=== PATIENT | male | born 1935 | race Caucasian/White ===

== ENCOUNTER 2025-07-19 08:21 | Day surgery (SDC) | payer MEDICARE ==
[~2025-07-19] VITALS: Ht 185.4 cm; Wt 84.9 kg
[~2025-07-19 08:21] MED LIST: C 50TAB PO; MAGNESIUM THREONATE PO; TRAM50TA2 PO; VITA400C67 PO
[2025-07-19] MEDS: LR 1,000 ML IV SCH (09:00)
[2025-07-19] MEDS ORDERED: ONDANSETRON 4MG 2ML VIAL As Ordered ONE (09:33)
[2025-07-19] MEDS ORDERED: MIDAZOLAM INJ 2 MG/2 ML VIAL As Ordered ONE (09:33)
[2025-07-19] MEDS ORDERED: LIDOCAINE 2% 100 MG/5 ML SDV (FOR ANES.) As Ordered ONE (09:33)
[2025-07-19] MEDS ORDERED: dexAMETHasone 4 MG/ML 1 ML VIAL As Ordered ONE (09:33)
[2025-07-19] MEDS ORDERED: LIDOCAINE 5% OINT 30 GM TUBE As Ordered ONE (11:03)
[2025-07-19] MEDS: ceFAZolin SOD 2 GM IV ONCE IV ONE (11:18)
[2025-07-19] MEDS ORDERED: ACETAMINOPHEN 1000MG/100ML IV BAG As Ordered ONE (11:33)
[2025-07-19] MEDS ORDERED: SEVOFLURANE INHAL SOLN 250 ML BTL As Ordered ONE (11:33)
[2025-07-19] MEDS ORDERED: CALCIUM CHLORIDE 10% 1 GM/10 ML SYR As Ordered ONE (12:20)
[2025-07-19] MEDS: ISOVUE-300 61% 100 ML VIAL As Ordered ONE (12:53)
[2025-07-19] MEDS ORDERED: HYDROMORPHONE HCL 0.5 MG/0.5 ML SYRINGE IV PRN (13:20)
[2025-07-19] MEDS ORDERED: LR 1,000 ML IV SCH (13:20)
[2025-07-19] MEDS ORDERED: TAMS-18 PO (13:44)
[2025-07-19] MEDS: ONDANSETRON 4MG 2ML VIAL IV PRN (14:06)
[2025-07-19] MEDS ORDERED: POLYVINYL ALCOHOL OPHTH SOLN 15ML (LIQUITEARS) OS PRN (14:35)
[2025-07-19] MEDS ORDERED: KETOROLAC 30 MG/ML 1 ML VIAL IV ONE (15:20)
[2025-07-19 16:30] VITALS: BP 148/80; TEMP 97.4; O2SAT 98
[2025-07-19] MEDS ORDERED: GENTAMICIN 0.3% OPHTH SOL 5 ML BTL OS SCH (17:00)
== END 2025-07-19 18:16 | disposition home or self-care (01) ==
LOC: M SDC 08:21
PROVIDERS: ATTEND Urology
DX: N13.2 Hydronephrosis with renal and ureteral calculous obstruction (principal); N21.0 Calculus in bladder; Z86.718 Personal history of other venous thrombosis and embolism
CPT/HCPCS: 52318; 52356; 76000; 82365; C1769; C1894; C2617; J0131; J0618; J0690; J1100; J2250; J2405; J3010; Q9967

== ENCOUNTER 2025-10-20 11:22 | Day surgery (SDC) | payer MEDICARE ==
[~2025-10-20] VITALS: Ht 185.4 cm; Wt 88.2 kg
[2025-10-20] MEDS: ceFAZolin SOD 2 GM IV ONCE IV ONE (06:00)
[~2025-10-20 11:22] MED LIST changes: +BETA250027 PO; +IBUP200C25 PO; +OXYB5TAB14 PO; +PHEN1TAB73 PO; +QC F0.52 PO; +TAMS-18 PO; +TAMS1CAP17 PO; +UBIQ200C3 PO; +VITA-199 PO; +[UNRECOGNIZED DRUG - OTHER] PO; +ceFAZolin SOD 2 GM IV ONCE IV ONE
[2025-10-20] MEDS ORDERED: ISOVUE-300 61% 100 ML VIAL As Ordered ONE (12:34)
[2025-10-20] MEDS ORDERED: dexAMETHasone 4 MG/ML 1 ML VIAL As Ordered ONE (12:36)
[2025-10-20] MEDS ORDERED: LIDOCAINE 2% 100 MG/5 ML SDV (FOR ANES.) As Ordered ONE (12:36)
[2025-10-20] MEDS ORDERED: ETOMIDATE 20 MG/10 ML VIAL As Ordered ONE (12:36)
[2025-10-20] MEDS ORDERED: ONDANSETRON 4MG/2ML VIAL As Ordered ONE (12:36)
[2025-10-20] MEDS ORDERED: ROCURONIUM BROMIDE 50MG/5ML VIAL As Ordered ONE (15:20)
[2025-10-20] MEDS ORDERED: MORPHINE 2 MG/ML 1 ML VIAL IV PRN (15:25)
[2025-10-20] MEDS ORDERED: HYDROMORPHONE HCL 0.5 MG/0.5 ML SYRINGE IV PRN (15:25)
[2025-10-20] MEDS ORDERED: OXYB5TAB14 PO (15:34)
[2025-10-20] MEDS ORDERED: TRAM50TA2 PO (15:34)
[2025-10-20 17:00] VITALS: BP 122/72; TEMP 97.8; O2SAT 98
== END 2025-10-20 18:10 | disposition home or self-care (01) ==
LOC: M SDC 11:22
PROVIDERS: ATTEND Urology
DX: N13.2 Hydronephrosis with renal and ureteral calculous obstruction (principal); N40.0 Benign prostatic hyperplasia without lower urinary tract symptoms; Z86.73 Personal history of transient ischemic attack (TIA), and cerebral infarction without residual deficits; Z88.8 Allergy status to other drugs, medicaments and biological substances; Z87.891 Personal history of nicotine dependence
CPT/HCPCS: 52356; 74420; 82365; C1769; C1894; C2617; J0688; J1100; J2405; J3010; Q9967